=== PATIENT | female | born 1935 | race Caucasian/White ===

== ENCOUNTER 2018-02-08 09:35 | Emergency (ER) | payer MEDICARE, OTHER ==
[~2018-02-08] VITALS: Ht 152.4 cm; Wt 72.6 kg
[~2018-02-08 09:35] MED LIST: ALBU90OI INH; AMLO10 PO; ASCO500 PO; ASPI81CH PO; ASPI81EC PO; ATEN25; ATOR10 PO; BCOIRO PO; BENADRYL25 MG PO; CARB200; CARB200 PO; CHOL10002 PO; CIPR500 PO; CLON.1 PO; CLON.2; CLON.2 PO; CLOP75 PO; CYAN1000I IM; Calcium Citrat250 MG PO; Cyclobenzaprine5 MG PO; DIAZ10 PO; DIAZ2 PO; DIAZ5; DIAZ5 PO; DIPH25 PO; DIPH50; DOCU100 PO; Diazepam5 MG PO; ENAL10; GABA300 PO; HYDACE5; HYDACE7.5 PO; HYDR1TAB94 PO; HYDSUL200 PO; Hydrocodone-Ap1 EA26 PO; IBUHYD PO; LEVFLO500 PO; LEVSOD50 PO; LOSA50 PO; MICONAZOLE 3200 MG; MIRT15 PO; MULVITB&C PO; MULVITMIND PO; Macrobid 100 M100 MG PO; Miconazole 31 EACH; NYST100TO; OMEP20ER PO; ONDA4 PO; PANT40 PO; POTCHL20ER PO; Prilosec Otc20 MG PO; RANI150; ROPI2 PO; ROPINIROLE HCL4 MG PO; SERT100 PO; SERT50 PO; SULTRIDS PO; Senokotxtra17.2 MG PO; Tylenol325 MG PO; VALS80 PO; Zofran Odt4 MG SL; Zofran4 MG PO; [UNRECOGNIZED DRUG - CODE] PO; [UNRECOGNIZED DRUG - CODE] PO; [UNRECOGNIZED DRUG - CODE] PO; [UNRECOGNIZED DRUG - CODE] PO; [UNRECOGNIZED DRUG - OTHER] PO
== END 2018-02-08 10:20 | disposition home or self-care (01) ==
LOC: ECHO 09:35 → ER 09:35 → ECHO 02-09 10:00
DX: I10 Essential (primary) hypertension (principal); F32.9 Major depressive disorder, single episode, unspecified; J45.909 Unspecified asthma, uncomplicated; Z86.73 Personal history of transient ischemic attack (TIA), and cerebral infarction without residual deficits; G20 Parkinson's disease; Z88.0 Allergy status to penicillin; Z88.8 Allergy status to other drugs, medicaments and biological substances; Z91.040 Latex allergy status; Z79.899 Other long term (current) drug therapy; Z79.891 Long term (current) use of opiate analgesic
CPT/HCPCS: 93005; 93010; 93306; 99283

== ENCOUNTER → 2018-03-20 | Outpatient (CLI) | payer MEDICARE, OTHER | LOC: LAB SHORT 16:47 → LAB 16:47 | DX: Z48.817 Encounter for surgical aftercare following surgery on the skin and subcutaneous tissue (principal) | CPT/HCPCS: 87070; 87077; 87147; 87186; 87205 ==

== ENCOUNTER 2019-02-25 22:38 | Emergency (ER) | payer MEDICARE, OTHER ==
[~2019-02-25] VITALS: Ht 152.4 cm; Wt 68.0 kg
== END 2019-02-26 01:14 | disposition home or self-care (01) ==
LOC: ER 22:38
DX: M25.571 Pain in right ankle and joints of right foot (principal); Z88.0 Allergy status to penicillin; Z88.8 Allergy status to other drugs, medicaments and biological substances; Z91.040 Latex allergy status; Z79.899 Other long term (current) drug therapy; Z79.891 Long term (current) use of opiate analgesic; I10 Essential (primary) hypertension; F32.9 Major depressive disorder, single episode, unspecified
CPT/HCPCS: 73590; 73600; 73620; 99283-25; A9270-GY

== ENCOUNTER 2019-06-06 22:49 | Emergency (ER) | payer MEDICARE, OTHER ==
[~2019-06-06] VITALS: Ht 152.4 cm; Wt 68.0 kg
[~2019-06-06 22:49] MED LIST changes: -HYDSUL200 PO
[2019-06-07 01:03] LABS: Source, Urine Clean Catch
[2019-06-07 01:09] LABS: Bilirubin, Urine Neg (Neg); Blood, Urine Neg (Neg); Glucose Qualitative, Urine Neg (Neg); Ketones, Urine Neg (Neg); Leukocyte Esterase, Urine 1+ (Neg); Nitrite, Urine Neg (Neg); Protein, Urine Neg (Neg); Urobilinogen, Urine NORM (Normal)
[2019-06-07 01:18] LABS: Appearance, Urine Clear (Clear); Bacteria Rare /hpf; Color, Urine Yellow (P-Yellow); Red Blood Cells, Urine Not Seen /hpf (0-2); Squamous Epithelial Cells Not Seen /hpf (Few); White Blood Cells, Urine 0-2 /hpf (0-5)
[2019-06-07] MEDS ORDERED: Cyclobenzaprine5 MG PO (02:21)
== END 2019-06-07 04:13 | disposition home or self-care (01) ==
LOC: ER 22:49
PROVIDERS: Emergency Medicine
DX: M62.830 Muscle spasm of back (principal); G89.29 Other chronic pain; I10 Essential (primary) hypertension; F32.9 Major depressive disorder, single episode, unspecified; J45.909 Unspecified asthma, uncomplicated; Z88.8 Allergy status to other drugs, medicaments and biological substances; Z88.0 Allergy status to penicillin; Z91.040 Latex allergy status; Z79.899 Other long term (current) drug therapy; Z79.02 Long term (current) use of antithrombotics/antiplatelets
CPT/HCPCS: 81001; 87077; 87086; 87186; 99283; A9270-GY; G0480

== ENCOUNTER 2019-08-23 16:32 | Inpatient (IN) | payer MEDICARE ==
[~2019-08-23] VITALS: Ht 152.4 cm; Wt 71.6 kg
[~2019-08-23 16:32] MED LIST changes: -ALBU90OI INH; -CHOL10002 PO; -LEVSOD50 PO; -MIRT15 PO; -Prilosec Otc20 MG PO; -ROPINIROLE HCL4 MG PO; -Tylenol325 MG PO
[2019-08-23 17:24] LABS: BASOPHILS ABSOLUTE AUTO 0.03 K/mm3 (0.00-0.23); BASOPHILS PERCENT AUTO 0 % (0-2); EOSINOPHILS ABSOLUTE AUTO 0.05 K/mm3 (0.00-0.68); EOSINOPHILS PERCENT AUTO 1 % (0-6); Hematocrit 36.8 % (33.0-51.0); Hemoglobin 12.1 g/dL (11.5-16.0); IMMATURE GRAN ABSOLUTE AUTO 0.03 K/mm3 (0.00-0.10); IMMATURE GRAN PERCENT AUTO 0 % (0-1); LYMPHOCYTES ABSOLUTE AUTO 1.56 K/mm3 (0.84-5.20); LYMPHOCYTES PERCENT AUTO 17 % (21-46); MONOCYTES ABSOLUTE AUTO 0.52 K/mm3 (0.16-1.47); MONOCYTES PERCENT AUTO 6 % (4-13); Mean Corpuscular HGB 30.7 pg (26.0-34.0); Mean Corpuscular HGB Conc 32.9 g/dL (31.5-36.5); Mean Corpuscular Volume 93 fL (80-100); Mean Platelet Volume 10.3 fL (9.1-12.4); NEUTROPHILS ABSOLUTE AUTO 7.29 K/mm3 (1.96-9.15); NEUTROPHILS PERCENT AUTO 77 % (41-73); Platelet Count 261 K/mm3 (150-400); RDW Coefficient Variation 12.7 % (11.7-14.2); RDW Standard Deviation 43.8 fL (35.1-46.3); Red Blood Cell Count 3.94 M/mm3 (3.80-5.20); White Blood Cell Count 9.48 K/mm3 (4.00-11.30)
[2019-08-23 17:42] LABS: Alanine Aminotransfer (ALT/SGP 23 U/L (12-78); Albumin, Blood 3.4 g/dL (3.4-5.0); Albumin/Globulin Ratio 1.1 (0.8-1.8); Alk Phos 74 U/L (50-136); Anion Gap 3 mmol/L (6-16); Aspartate Aminotrans (AST/SGOT 23 U/L (12-37); Bilirubin, Total 0.3 mg/dL (0.1-1.0); Blood Urea Nitrogen 24 mg/dL (8-24); Bun/Creatinine Ratio 27.3 (12.0-20.0); CO2, Blood 29 mmol/L (21-32); Calcium, Blood 8.8 mg/dL (8.5-10.1); Chloride, Blood 108 mmol/L (98-108); Creatinine, Blood 0.88 mg/dL (0.40-1.00); Globulin, Blood 3.1 g/dL (2.2-4.0); Glomerular Filtration Rate >60 (60-); Glucose, Blood 158 mg/dL (70-99); Potassium, Blood 4.5 mmol/L (3.5-5.5); Sodium, Blood 140 mmol/L (136-145); Total Protein, Blood 6.5 g/dL (6.4-8.2)
[2019-08-23 18:02] LABS: Source, Urine Catheter
[2019-08-23 18:05] LABS: Bilirubin, Urine Neg (Neg); Blood, Urine Neg (Neg); Glucose Qualitative, Urine Neg (Neg); Ketones, Urine Neg (Neg); Leukocyte Esterase, Urine 1+ (Neg); Nitrite, Urine Pos (Neg); Protein, Urine 1+ (Neg); Urobilinogen, Urine NORM (Normal)
[2019-08-23 18:11] LABS: Appearance, Urine Clear (Clear); Color, Urine Yellow (P-Yellow)
[2019-08-23 18:12] LABS: Bacteria Many /hpf; Red Blood Cells, Urine 0-2 /hpf (0-2); Squamous Epithelial Cells Few /hpf (Few)
[2019-08-23] MEDS ORDERED: HYDSUL200 PO (19:46)
[2019-08-23] MEDS ORDERED: CLON.2 PO (19:47)
[2019-08-23] MEDS ORDERED: LOSARTAN-HCTZ1 EAC2 PO (19:48)
[2019-08-23] MEDS ORDERED: GABA300 PO (19:49)
[2019-08-23 20:01] LABS: Carbamazepine 10.5 ug/mL (4.0-12.0)
[2019-08-23 20:31] LABS: U Amphetamine Screen Not Detected; U Barbituate Screen Not Detected; U Benzodiazapine Screen Not Detected; U Buprenorphine Screen Not Detected; U Cannabinoids Screen Not Detected; U Cocaine Screen Not Detected; U Methadone Screen Not Detected; U Methamphetamine Screen Not Detected; U Opiates Screen Not Detected; U Oxycodone Screen Not Detected; U Phencyclidine Screen Not Detected; U Propoxyphene Screen Not Detected
[2019-08-23] MEDS ORDERED: CARB200 PO (22:19)
[2019-08-23] MEDS ORDERED: ATOR10 PO (22:19)
[2019-08-23] MEDS ORDERED: AMLO10 PO (22:20)
[2019-08-23] MEDS ORDERED: CLOP75 PO (22:21)
[2019-08-23] MEDS ORDERED: LEVSOD50 PO (22:21)
[2019-08-23] MEDS ORDERED: VITAMIN D31000 UNI2 PO (22:22)
[2019-08-23] MEDS ORDERED: Ropinirole HCl2 MG PO (22:24)
[2019-08-23] MEDS ORDERED: ALBU90OI INH (22:25)
[2019-08-23] MEDS ORDERED: MIRT30 PO (22:25)
[2019-08-23] MEDS ORDERED: OMEPRAZOLE20 MG PO (22:26)
[2019-08-23] MEDS ORDERED: ASCO500 PO (22:28)
[2019-08-23] MEDS ORDERED: Tylenol325 MG PO (22:28)
[2019-08-23] MEDS ORDERED: Calcium 600 MG1 EACH PO (22:31)
--- NOTE | 2019-08-24 05:43 | NUR ---
SHIFT SUMMARY PATIENT ADMITTED FROM ER. AAOX4. FORGETFUL. 1 PERSON ASSIST TO BSC. BED ALARM. RIGHT AC IV LEAKING , REPLACED IV IN L AC. PATIENT SLEPT THROUGHOUT SHIFT. USING CALL LIGHT APPROPRIATELY. WILL CONTINUE TO MONITOR.
--- NOTE | 2019-08-24 10:27 | NUR ---
ECHOCARDIOGRAM COMPLETED
--- NOTE | 2019-08-24 17:56 | NUR ---
PT ALERT AND ORIENTED THROUGHOUT THIS SHIFT. PT UP TO BATHROOM WITH FWW MULTIPLE TIMES THIS SHIFT WITH MINIMAL STANDBY ASSIST. PT COOPERATIVE WITH CARE. PT VERY [place] AND WITHOUT HER HEARING AIDS. PT HAS HAD MULTIPLE VISITORS THROUGHOUT THIS SHIFT. PT HAS BEEN IN BED FOR MOST OF THIS SHIFT, UP IN CHAIR FOR BREAKFAST. PT CURRENTLY IN ROOM EATING DINNER WITH VISITORS IN ROOM, CALL LIGHT WITHIN REACH. WILL CONTINUE TO MONITOR.
[2019-08-25 05:08] LABS: Anion Gap 6 mmol/L (6-16); Blood Urea Nitrogen 12 mg/dL (8-24); Bun/Creatinine Ratio 19.2 (12.0-20.0); CO2, Blood 26 mmol/L (21-32); Calcium, Blood 8.1 mg/dL (8.5-10.1); Chloride, Blood 105 mmol/L (98-108); Creatinine, Blood 0.62 mg/dL (0.40-1.00); Glomerular Filtration Rate >60 (60-); Glucose, Blood 112 mg/dL (70-99); Potassium, Blood 3.8 mmol/L (3.5-5.5); Sodium, Blood 137 mmol/L (136-145)
--- NOTE | 2019-08-25 05:25 | NUR ---
SHIFT SUMMARY NO ACUTE CHANGES TO REPORT THIS SHIFT. PT HAS RESTED MOST OF THE NIGHT. PT A/OX4, BUT IS VERY FORGETFUL AND SETS OFF BED ALARM A FEW TIMES THIS SHIFT. SHE IS A MINIMAL ASSIST TO THE BSC. PT DENIES PAIN. NEW IV STARTED IN RADHA BY SOUND TESTER. NS INFUSING ORDERED. ASSESSMENT UNCHANGED. VITALS STABLE. WILL CONTINUE TO MONITOR AND REPORT TO ONCOMING RN.
--- NOTE | 2019-08-25 17:50 | NUR ---
PT ALERT AND ORIENTED DURING THIS SHIFT. PT MILDLY FORGETFUL OF PREVIOUS CONVERSATIONS. PT USES CALL LIGHT FOR MANY NEEDS, BUT FORGETS WHEN SHE NEEDS TO USE THE BATHROOM. PT STEADY ON HER FEET WITH FWW, BUT FORGETS THAT SHE HAS AN IV RUNNING. PT AMBULATED IN THE HALLWAY THIS SHIFT WITH FWW AND STANDBY ASSIST. PT TOLERATED WELL. PT'S SISTER WAS IN TO VISIT THIS AFTERNOON. UP IN BED EATING DINNER, CALL LIGHT IN REACH. WILL CONTINUE TO MONITOR.
--- NOTE | 2019-08-26 05:11 | NUR ---
SHIFT SUMMARY NO ACUTE CHANGES TO REPORT THIS SHIFT. PT HAS RESTED MOST THE NIGHT. PT PLESANT AND COOPERATIVE, A/OX4. SHE IS FORGETFUL AND DOES NOT USE CALL LIGHT FOR HELP. BED ALARM IN PLACE FOR SAFETY. FLUIDS INFUSING ORDERED. PLAN IS FOR DC TODAY. VITALS STABLE AND ASSESSMENT UNCHANGED. WILL CONTINUE TO MONITOR AND REPORT TO ONCOMING RN.
[2019-08-26] MEDS ORDERED: LEVFLO500 PO (10:58)
[2019-08-26] MEDS ORDERED: Refresh Celluv1 EACH BOTHEYES (10:58)
[2019-08-26] MEDS ORDERED: Culturelle1 CAP PO (10:59)
--- NOTE | 2019-08-26 13:48 | NUR ---
ATTEMPTED TO CALL PT'S SON WHO LIVES WITH PT, NO ANSWER. PT REPORTS THAT PT'S SON IS EXTREMELY HARD OF HEARING AND DOES NOT DRIVE. PT REPORTED THAT POC WOULD BE PT'S SISTER SHE STILL DRIVES, PT'S SISTER LUCY WAS CALLED AND A MESSAGE WAS LEFT.
--- NOTE | 2019-08-26 15:41 | NUR ---
Patient AO to person, place, time, and situation, but forgetful. One person SBA W/transfers. Cont. of bladder. Denies SOB, lungs clear to all lobes. Bowel tones normoactive to all quadrants. IV fluids running @ prescribed rate to RFA site. IV site without obseravble IV related complications. Reporting 8/10 pain to back as well as chronic BLE/finger neuropathy. Positioning and APAP effective, patient reporting 3/10 pain post interventions. Bandaid to LUE saturated W/serosang drainage. Site cleaned, new bandaid applied. Wound without observable complications @ this time. IV DCd by this SN @ approximately 1430, no observable IV related complications. Discharge paperwork reviewed with patient and sister. Patient rscorted to [facility] where she was transported by family. Pt discharged @ 1436.
== END 2019-08-26 14:36 | disposition home or self-care (01) | DRG 871 ==
LOC: ER 16:32 → MEDS 19:37 → ER 20:36 → MEDS 20:43
PROVIDERS: Internal Medicine; Physician Assistant; ADMIT Internal Medicine
DX: A41.9 Sepsis, unspecified organism (principal); G92 Toxic encephalopathy; N39.0 Urinary tract infection, site not specified; E87.2 Acidosis; I10 Essential (primary) hypertension; E03.9 Hypothyroidism, unspecified; I35.0 Nonrheumatic aortic (valve) stenosis; I95.9 Hypotension, unspecified; Z66 Do not resuscitate; K21.9 Gastro-esophageal reflux disease without esophagitis; E78.5 Hyperlipidemia, unspecified; Z88.0 Allergy status to penicillin; Z88.8 Allergy status to other drugs, medicaments and biological substances; Z91.040 Latex allergy status; Z79.899 Other long term (current) drug therapy; Z87.891 Personal history of nicotine dependence
CPT/HCPCS: 36415; 71045; 80048; 80053; 80156; 81001; 83605; 84443; 85025; 87086; 90686; 93005; 93010; 93306; 96361; 96374; 99285-25; A9270; J0696; J1650; J7030; J7120

== ENCOUNTER → 2020-01-24 | Outpatient (CLI) | payer MEDICARE, OTHER ==
[~2020-01-24] MED LIST changes: +ALBU90OI INH; +Calcium 600 MG1 EACH PO; +Culturelle1 CAP PO; +HYDSUL200 PO; +LEVSOD50 PO; +LOSARTAN-HCTZ1 EAC2 PO; +MIRT30 PO; +OMEPRAZOLE20 MG PO; +Refresh Celluv1 EACH BOTHEYES; +Ropinirole HCl2 MG PO; +Tylenol325 MG PO; +VITAMIN D31000 UNI2 PO
[2020-01-24 15:03] LABS: Source, Urine Clean Catch
[2020-01-24 16:02] LABS: Appearance, Urine Hazy (Clear); Bilirubin, Urine Neg (Neg); Blood, Urine Neg (Neg); Color, Urine Yellow (P-Yellow); Glucose Qualitative, Urine Neg (Normal); Ketones, Urine Neg (Neg); Leukocyte Esterase, Urine Neg (Neg); Nitrite, Urine Neg (Neg); Protein, Urine Neg (Neg); Red Blood Cells, Urine Not Seen /hpf (0-2); Specific Gravity, Urine 1.025 (1.003-1.022); Urobilinogen, Urine NORM (Normal); White Blood Cells, Urine 0-2 /hpf (0-5)
[2020-01-24 16:03] LABS: Amorphous Mod (0-Heavy); Bacteria Not Seen /hpf; Squamous Epithelial Cells Many /hpf (Few)
== END | disposition home or self-care (01) ==
LOC: LAB EV 14:35
PROVIDERS: Physician Assistant
DX: N39.0 Urinary tract infection, site not specified (principal)
CPT/HCPCS: 81001

== ENCOUNTER 2020-02-11 12:08 | Inpatient (IN) | payer MEDICARE ==
[~2020-02-11] VITALS: Ht 152.4 cm; Wt 68.0 kg
[~2020-02-11 12:08] MED LIST changes: +EUTHYROX50 MCG PO; -LEVSOD50 PO; +VITAMIN D31000 UNI1 PO; -VITAMIN D31000 UNI2 PO
[2020-02-11 12:40] LABS: Source, Urine Catheter
[2020-02-11 12:47] LABS: Bilirubin, Urine Neg (Neg); Blood, Urine Neg (Neg); Glucose Qualitative, Urine Neg (Neg); Ketones, Urine Neg (Neg); Leukocyte Esterase, Urine Neg (Neg); Nitrite, Urine Pos (Neg); Protein, Urine Neg (Neg); Specific Gravity, Urine 1.015 (1.003-1.022); Urobilinogen, Urine NORM (Normal)
[2020-02-11 12:57] LABS: Appearance, Urine Clear (Clear); Color, Urine Yellow (P-Yellow)
[2020-02-11 12:58] LABS: Bacteria Many /hpf; Red Blood Cells, Urine 0-2 /hpf (0-2); Squamous Epithelial Cells Rare /hpf (Few)
[2020-02-11 13:26] LABS: BASOPHILS ABSOLUTE AUTO 0.03 K/mm3 (0.00-0.23); BASOPHILS PERCENT AUTO 1 % (0-2); EOSINOPHILS ABSOLUTE AUTO 0.15 K/mm3 (0.00-0.68); EOSINOPHILS PERCENT AUTO 2 % (0-6); Hematocrit 37.8 % (33.0-51.0); Hemoglobin 12.6 g/dL (11.5-16.0); IMMATURE GRAN ABSOLUTE AUTO 0.02 K/mm3 (0.00-0.10); IMMATURE GRAN PERCENT AUTO 0 % (0-1); LYMPHOCYTES ABSOLUTE AUTO 1.91 K/mm3 (0.84-5.20); LYMPHOCYTES PERCENT AUTO 29 % (21-46); MONOCYTES ABSOLUTE AUTO 0.56 K/mm3 (0.16-1.47); MONOCYTES PERCENT AUTO 9 % (4-13); Mean Corpuscular HGB 29.6 pg (26.0-34.0); Mean Corpuscular HGB Conc 33.3 g/dL (31.5-36.5); Mean Corpuscular Volume 89 fL (80-100); NEUTROPHILS ABSOLUTE AUTO 3.91 K/mm3 (1.96-9.15); NEUTROPHILS PERCENT AUTO 59 % (41-73); Platelet Count 297 K/mm3 (150-400); RDW Coefficient Variation 13.1 % (11.7-14.2); RDW Standard Deviation 42.4 fL (35.1-46.3); Red Blood Cell Count 4.25 M/mm3 (3.80-5.20); White Blood Cell Count 6.58 K/mm3 (4.00-11.30)
[2020-02-11 14:56] LABS: Anion Gap 4 mmol/L (6-16); Blood Urea Nitrogen 13 mg/dL (8-24); Bun/Creatinine Ratio 22.6 (12.0-20.0); CO2, Blood 27 mmol/L (21-32); Calcium, Blood 8.7 mg/dL (8.5-10.1); Chloride, Blood 107 mmol/L (98-108); Creatinine, Blood 0.57 mg/dL (0.40-1.00); Glomerular Filtration Rate >60 (60-); Glucose, Blood 104 mg/dL (70-99); Potassium, Blood 4.4 mmol/L (3.5-5.5); Sodium, Blood 138 mmol/L (136-145)
[2020-02-11] MEDS ORDERED: REMERON30 MG PO (15:20)
[2020-02-11] MEDS ORDERED: GABA300 PO (16:55)
[2020-02-11] MEDS ORDERED: CALCIUM CIT 311 EACH PO (18:25)
[2020-02-11] MEDS ORDERED: CARB200 PO (18:31)
[2020-02-11] MEDS ORDERED: LOSA50 PO (18:32)
[2020-02-11] MEDS ORDERED: SERT100 PO (18:32)
[2020-02-11] MEDS ORDERED: HYDR1TAB94 PO (18:33)
[2020-02-11] MEDS ORDERED: DIAZ5 PO (18:33)
[2020-02-11] MEDS ORDERED: B Complex-Foli1 EACH PO (18:34)
[2020-02-11] MEDS ORDERED: VITAMIN D3100 MCG PO (18:34)
[2020-02-11] MEDS ORDERED: BISA10S PR (18:35)
[2020-02-11] MEDS ORDERED: BENADRYL25 M1 PO (18:35)
[2020-02-11] MEDS ORDERED: ONDA4 PO (18:36)
[2020-02-12 04:45] LABS: Hematocrit 36.7 % (33.0-51.0); Mean Corpuscular HGB 29.6 pg (26.0-34.0); Mean Corpuscular HGB Conc 32.7 g/dL (31.5-36.5); Mean Corpuscular Volume 91 fL (80-100); Mean Platelet Volume 9.2 fL (9.1-12.4); Platelet Count 324 K/mm3 (150-400); RDW Coefficient Variation 13.2 % (11.7-14.2); RDW Standard Deviation 43.8 fL (35.1-46.3); Red Blood Cell Count 4.05 M/mm3 (3.80-5.20); White Blood Cell Count 5.61 K/mm3 (4.00-11.30)
[2020-02-12 05:05] LABS: Anion Gap 5 mmol/L (6-16); Blood Urea Nitrogen 18 mg/dL (8-24); Bun/Creatinine Ratio 19.7 (12.0-20.0); CHOL/HDL RATIO 4.7; CO2, Blood 26 mmol/L (21-32); Calcium, Blood 8.2 mg/dL (8.5-10.1); Chloride, Blood 108 mmol/L (98-108); Cholesterol 188 mg/dL (50-200); Creatinine, Blood 0.91 mg/dL (0.40-1.00); Glomerular Filtration Rate >60 (60-); Glucose, Blood 90 mg/dL (70-99); HDL Cholesterol 40 mg/dL (>39); LDL/HDL RATIO 2.8; Low Density Lipoprotein Chol 110 mg/dL (0-110); Potassium, Blood 3.9 mmol/L (3.5-5.5); Sodium, Blood 139 mmol/L (136-145); Triglycerides 189 mg/dL (30-160); Very Low Density Lipoprot Chol 37 mg/dL (6-32)
[2020-02-13] MEDS ORDERED: ASPI325 PO (15:19)
== END 2020-02-13 16:05 | disposition home health service (06) | DRG 65 ==
LOC: ER 12:08 → MEDS 12:09 → ER 16:10 → MEDS 16:15
PROVIDERS: Emergency Medicine; Physician Assistant; ADMIT Internal Medicine
DX: I63.9 Cerebral infarction, unspecified (principal); N39.0 Urinary tract infection, site not specified; R47.1 Dysarthria and anarthria; R13.10 Dysphagia, unspecified; I10 Essential (primary) hypertension; F41.8 Other specified anxiety disorders; F03.90 Unspecified dementia, unspecified severity, without behavioral disturbance, psychotic disturbance, mood disturbance, and anxiety; K21.9 Gastro-esophageal reflux disease without esophagitis; E03.9 Hypothyroidism, unspecified; B96.20 Unspecified Escherichia coli [E. coli] as the cause of diseases classified elsewhere; G25.81 Restless legs syndrome; G62.9 Polyneuropathy, unspecified; I35.0 Nonrheumatic aortic (valve) stenosis; I27.20 Pulmonary hypertension, unspecified; E78.5 Hyperlipidemia, unspecified; Z66 Do not resuscitate; Z79.02 Long term (current) use of antithrombotics/antiplatelets
CPT/HCPCS: 36415; 51701; 70450; 70551; 80048; 80061; 81001; 83036; 85025; 85027; 87077; 87086; 87186; 92610; 93306; 93880; 96372; 96374; 97162; 97165; 97530; 97535; 99285-25; A9270-GY; G0378; J0696; J1650; J7050

== ENCOUNTER 2020-05-01 14:56 | Inpatient (IN) | payer MEDICARE, OTHER ==
[~2020-05-01] VITALS: Ht 165.1 cm; Wt 79.4 kg
[~2020-05-01 14:56] MED LIST changes: +ASPI325EC PO; +ATOR40TA PO; +BENADRYL25 M1 PO; +BISA10S PR; +CALCIUM CIT 311 EACH PO; +REMERON30 MG PO; +VITAMIN D3100 MCG PO; +Vitamin B Comple1 EA PO
[2020-05-01 15:20] LABS: BASOPHILS ABSOLUTE AUTO 0.05 K/mm3 (0.00-0.23); BASOPHILS PERCENT AUTO 1 % (0-2); EOSINOPHILS ABSOLUTE AUTO 0.12 K/mm3 (0.00-0.68); EOSINOPHILS PERCENT AUTO 2 % (0-6); Hematocrit 39.7 % (33.0-51.0); Hemoglobin 12.8 g/dL (11.5-16.0); IMMATURE GRAN ABSOLUTE AUTO 0.01 K/mm3 (0.00-0.10); IMMATURE GRAN PERCENT AUTO 0 % (0-1); LYMPHOCYTES ABSOLUTE AUTO 2.49 K/mm3 (0.84-5.20); LYMPHOCYTES PERCENT AUTO 46 % (21-46); MONOCYTES ABSOLUTE AUTO 0.43 K/mm3 (0.16-1.47); MONOCYTES PERCENT AUTO 8 % (4-13); Mean Corpuscular HGB 29.4 pg (26.0-34.0); Mean Corpuscular HGB Conc 32.2 g/dL (31.5-36.5); Mean Corpuscular Volume 91 fL (80-100); Mean Platelet Volume 9.9 fL (9.1-12.4); NEUTROPHILS ABSOLUTE AUTO 2.27 K/mm3 (1.96-9.15); NEUTROPHILS PERCENT AUTO 42 % (41-73); Platelet Count 271 K/mm3 (150-400); RDW Coefficient Variation 12.8 % (11.7-14.2); RDW Standard Deviation 43.3 fL (35.1-46.3); Red Blood Cell Count 4.35 M/mm3 (3.80-5.20); White Blood Cell Count 5.37 K/mm3 (4.00-11.30)
[2020-05-01 15:42] LABS: Alanine Aminotransfer (ALT/SGP 15 U/L (12-78); Albumin, Blood 3.3 g/dL (3.4-5.0); Alk Phos 77 U/L (50-136); Anion Gap 6 mmol/L (6-16); Aspartate Aminotrans (AST/SGOT 13 U/L (12-37); Bilirubin, Total 0.3 mg/dL (0.1-1.0); Blood Urea Nitrogen 26 mg/dL (8-24); Bun/Creatinine Ratio 29.5 (12.0-20.0); CO2, Blood 26 mmol/L (21-32); Calcium, Blood 8.6 mg/dL (8.5-10.1); Chloride, Blood 109 mmol/L (98-108); Creatinine, Blood 0.88 mg/dL (0.40-1.00); Globulin, Blood 3.3 g/dL (2.2-4.0); Glomerular Filtration Rate >60 (60-); Glucose, Blood 120 mg/dL (70-99); Potassium, Blood 4.1 mmol/L (3.5-5.5); Sodium, Blood 141 mmol/L (136-145); Total Protein, Blood 6.6 g/dL (6.4-8.2)
[2020-05-01 15:50] LABS: Source, Urine Catheter
[2020-05-01 15:59] LABS: Bilirubin, Urine Neg (Neg); Blood, Urine Neg (Neg); Glucose Qualitative, Urine Neg (Neg); Ketones, Urine Neg (Neg); Leukocyte Esterase, Urine 2+ (Neg); Nitrite, Urine Pos (Neg); Protein, Urine Neg (Neg); Urobilinogen, Urine NORM (Normal)
[2020-05-01 16:03] LABS: International Normalized Ratio 0.95; Prothrombin Time Results 10.2 Sec (9.7-11.5)
[2020-05-01 16:10] LABS: Appearance, Urine Hazy (Clear); Color, Urine Yellow (P-Yellow)
[2020-05-01 16:11] LABS: Red Blood Cells, Urine 0-2 /hpf (0-2); White Blood Cells, Urine 25-50 /hpf (0-5)
[2020-05-01 16:12] LABS: Bacteria Many /hpf; Squamous Epithelial Cells Few /hpf (Few)
[2020-05-02] MEDS ORDERED: DULCOLAX STOOL100 MG PO (03:24)
[2020-05-02] MEDS ORDERED: BENADRYL25 MG PO (03:25)
[2020-05-02] MEDS ORDERED: ONDA4 PO (03:26)
[2020-05-02] MEDS ORDERED: SYSTANE 0.3-0.415 ML BOTHEYES (03:27)
[2020-05-02] MEDS ORDERED: DIAZ5 PO (03:35)
[2020-05-02] MEDS ORDERED: HYDR1TAB94 PO (03:36)
[2020-05-02 05:56] LABS: BASOPHILS ABSOLUTE AUTO 0.04 K/mm3 (0.00-0.23); BASOPHILS PERCENT AUTO 1 % (0-2); EOSINOPHILS ABSOLUTE AUTO 0.17 K/mm3 (0.00-0.68); EOSINOPHILS PERCENT AUTO 2 % (0-6); Hematocrit 40.4 % (33.0-51.0); Hemoglobin 12.7 g/dL (11.5-16.0); IMMATURE GRAN ABSOLUTE AUTO 0.02 K/mm3 (0.00-0.10); IMMATURE GRAN PERCENT AUTO 0 % (0-1); LYMPHOCYTES ABSOLUTE AUTO 2.49 K/mm3 (0.84-5.20); LYMPHOCYTES PERCENT AUTO 29 % (21-46); MONOCYTES ABSOLUTE AUTO 0.65 K/mm3 (0.16-1.47); MONOCYTES PERCENT AUTO 8 % (4-13); Mean Corpuscular HGB 29.3 pg (26.0-34.0); Mean Corpuscular HGB Conc 31.4 g/dL (31.5-36.5); Mean Corpuscular Volume 93 fL (80-100); Mean Platelet Volume 9.9 fL (9.1-12.4); NEUTROPHILS ABSOLUTE AUTO 5.16 K/mm3 (1.96-9.15); NEUTROPHILS PERCENT AUTO 61 % (41-73); Platelet Count 252 K/mm3 (150-400); RDW Coefficient Variation 12.6 % (11.7-14.2); RDW Standard Deviation 43.5 fL (35.1-46.3); Red Blood Cell Count 4.33 M/mm3 (3.80-5.20); White Blood Cell Count 8.53 K/mm3 (4.00-11.30)
[2020-05-02 06:53] LABS: Alanine Aminotransfer (ALT/SGP 10 U/L (12-78); Albumin, Blood 3.1 g/dL (3.4-5.0); Alk Phos 81 U/L (50-136); Anion Gap 6 mmol/L (6-16); Aspartate Aminotrans (AST/SGOT 13 U/L (12-37); Bilirubin, Total 0.4 mg/dL (0.1-1.0); Blood Urea Nitrogen 17 mg/dL (8-24); Bun/Creatinine Ratio 26.2 (12.0-20.0); CO2, Blood 22 mmol/L (21-32); Chloride, Blood 114 mmol/L (98-108); Creatinine, Blood 0.65 mg/dL (0.40-1.00); Globulin, Blood 3.2 g/dL (2.2-4.0); Glomerular Filtration Rate >60 (60-); Glucose, Blood 89 mg/dL (70-99); Sodium, Blood 142 mmol/L (136-145); Total Protein, Blood 6.3 g/dL (6.4-8.2)
--- NOTE | 2020-05-02 12:21 | NUR ---
SPEECH THERAPY IN TO COMPLETE A SWALLOW EVAL.
--- NOTE | 2020-05-02 12:58 | NUR ---
DR COOK IN TO SEE PT. DR COOK NOTIFIED OF HTN, OK TO START LOSARTAN 50MG PO DAILY, START NOW. DR COOK CALLED ADN UPDATED STEVE FAULKNER.
[2020-05-02] MEDS ORDERED: DOCU100 PO (13:07)
--- NOTE | 2020-05-02 16:45 | NUR ---
SHIFT SUMMARY- PT A/OX4, FORGETFUL AT TIMES. PT WITH SLURRED SPEECH BUT ABLE TO UNDERSTAND MOST OF WHAT SHE IS SAYING. SWALLOW EVAL COMPLETED, PUREE HONEY THICK DIET WITH SUPERVISION. PT DID WELL WITH LUNCH. SOFTWARE SALES EXECUTIVE EQUAL. LS CLEAR, ON RA. TELE NSR AT 64. PT DOES REPORT SOME MILD NUMBNESS TO RIGHT HAND. 1 ASSIST UP TO BSC/CHAIR, UNSTEADY AND IMPULSIVE AT TIMES. PT STARTED BACK ON COZARR. TYLENOL GIVEN X1 FOR HEADACHE. NO OTHER ACUTE CHANGES THIS SHIFT.
--- NOTE | 2020-05-03 03:32 | NUR ---
SMOKE AND FLAME SPECIALIST SUMMARY PT A/O X4. CALLS APPROPRIATELY. HOSPTALIST AWARE OF HTN. THIS IS PERMISSIVE HTN ALLOWABLE WITH [facility]. HOSPITALIST KAYDEN SAID TO CALL IF SYSTOLIC IS 200 OR GREATER. FREQUENT URINATION. UTI TREATING WITH IV ANTIBIOTICS. PT REPORTS LESS BURNING UPON URINATION. NO FACIAL DROOPING NOTICED. PUPILS EQUAL AND REACTIVE TO LIGHT. PT REPORTS LEFT SIDED WEAKNESS. LEFT SIDE PUBLIC HEALTH PHYSICIAN FEELS WEAKER COMPARED TO RIGHT SIDE. PT REPORTS HEADACHE AND BACKACHE. TYLENOL GIVEN WHICH DID NOT DECREASED PT'S PAIN. NORCO X1 WAS ORDERED BY HOSPITALIST KAYDEN. MEDS CRUSHED IN APPLE SAUCE PT HAS TROUBLE SWALLOWING.
[2020-05-03 05:48] LABS: BASOPHILS ABSOLUTE AUTO 0.04 K/mm3 (0.00-0.23); BASOPHILS PERCENT AUTO 1 % (0-2); EOSINOPHILS ABSOLUTE AUTO 0.19 K/mm3 (0.00-0.68); EOSINOPHILS PERCENT AUTO 3 % (0-6); Hematocrit 37.8 % (33.0-51.0); Hemoglobin 12.4 g/dL (11.5-16.0); IMMATURE GRAN ABSOLUTE AUTO 0.01 K/mm3 (0.00-0.10); IMMATURE GRAN PERCENT AUTO 0 % (0-1); LYMPHOCYTES ABSOLUTE AUTO 2.17 K/mm3 (0.84-5.20); LYMPHOCYTES PERCENT AUTO 36 % (21-46); MONOCYTES ABSOLUTE AUTO 0.51 K/mm3 (0.16-1.47); MONOCYTES PERCENT AUTO 9 % (4-13); Mean Corpuscular HGB 29.7 pg (26.0-34.0); Mean Corpuscular HGB Conc 32.8 g/dL (31.5-36.5); Mean Corpuscular Volume 90 fL (80-100); Mean Platelet Volume 9.8 fL (9.1-12.4); NEUTROPHILS PERCENT AUTO 51 % (41-73); Platelet Count 252 K/mm3 (150-400); RDW Coefficient Variation 12.4 % (11.7-14.2); RDW Standard Deviation 41.4 fL (35.1-46.3); Red Blood Cell Count 4.18 M/mm3 (3.80-5.20); White Blood Cell Count 6.02 K/mm3 (4.00-11.30)
[2020-05-03 06:36] LABS: Alanine Aminotransfer (ALT/SGP 14 U/L (12-78); Albumin, Blood 3.4 g/dL (3.4-5.0); Alk Phos 91 U/L (50-136); Anion Gap 6 mmol/L (6-16); Aspartate Aminotrans (AST/SGOT 18 U/L (12-37); Bilirubin, Total 0.3 mg/dL (0.1-1.0); Blood Urea Nitrogen 8 mg/dL (8-24); Bun/Creatinine Ratio 12.5 (12.0-20.0); CO2, Blood 24 mmol/L (21-32); Calcium, Blood 8.5 mg/dL (8.5-10.1); Chloride, Blood 112 mmol/L (98-108); Creatinine, Blood 0.64 mg/dL (0.40-1.00); Globulin, Blood 3.3 g/dL (2.2-4.0); Glomerular Filtration Rate >60 (60-); Glucose, Blood 112 mg/dL (70-99); Potassium, Blood 3.9 mmol/L (3.5-5.5); Sodium, Blood 142 mmol/L (136-145); Total Protein, Blood 6.7 g/dL (6.4-8.2)
--- NOTE | 2020-05-03 10:30 | NUR ---
DR COOK IN TO SEE PT, FRIEND AT BEDSIDE WELL. DR COOK NOTIFIED OF CONTINUED ELEVATED BP'S, ORDER RECEIVED TO INCREASE LOSARTAN TO 100MG DAILY, OK TO GIVE A ONE TIME DOSE OF 50MG TODAY. ANTIBIOTICS CHANGED TO ORAL LEVAQUIN. TELE AND IVF DC'D. PT CONT TO C/O HEADACHE, STATES TYLENOL DOES NOT WORK. PT TAKES NORCO AT HOME, OK FOR NORCO 5/325MG [address] COOK ALSO SPOKE WITH PT ABOUT REHAB, PT IS AGREEABLE TO GO TO [facility] FOR REHAB. PER DR COOK GO AHEAD AND SWAB PT FOR R/O FOR SNF PLACEMENT.
--- NOTE | 2020-05-03 14:20 | NUR ---
THIS RN AND ASSISTANT INVENTORY MANAGER LOOKED FOR A SITE FOR A NEW IV PER DR COOK REQUEST, UNABLE TO FIND PERIPHERAL SITE. SPOKE WITH DR COOK AND OK TO LEAVE IV OUT AT THIS TIME.
--- NOTE | 2020-05-03 17:39 | NUR ---
SHIFT SUMMARY- PT A/OX4, FORGETFUL AT TIMES. PT HAS DENIED ANY PAIN T/O THE DAY. DRY CLEANING MACHINE OPERATOR HELPER APPEAR EQUAL AT THIS TIME, THIS AM STILL SOME VERY MILD WEAKNESS NOTED TO LEFT SIDE. SPEECH REMAINS SLURRED AT TIMES BUT ABLE TO UNDERSTAND. PT HAS BEEN EATING A PUREE HONEY THICK LIQUID DIET, NO COUGHING NOTED DURING MEALS HOWEVER WHEN SPEECH SEEN PT SHE NOTED COUGHING AND RECOMMENDED NPO IN WHICH PT REFUSED. BARIUM SWALLOW SCHEDULED FOR TOMORROW. BP REMAINS ELEVATED, COZARR INCREASED TO 100MG DAILY. PT UP WITH 1 ASSIST TO [facility] [place], AMBULATED IN HALLS WITH THERAPY. PLAN FOR SNF VS HH, PT AND FAMILY WANT [facility] IF SNF. COVID SCREENING SENT TODAY FOR DISCHARGE. LS CLEAR, ON RA. TELE SR AT 61 BUT HAS BEEN DC'D. NO OTHER ACUTE CHANGES THIS SHIFT.
--- NOTE | 2020-05-03 18:02 | NUR ---
PTS SBP HAS REMAINED IN THE 170'S EVEN WITH THE INCREASE IN LOSARTAN. CALLED AND SPOKE WITH JUANITA MONIQUE REGARDING THIS AND NO NEW ORDERS RECEIVED AT THIS TIME. REPORTS TO CONT TO MONITOR.
--- NOTE | 2020-05-04 04:26 | NUR ---
SHIFT SUMMARY PT SLEPT VERY LITTLE THIS EVENING. CALLS FREQUENTLY TO VOID. PT WAS REPORTING ABD DISCOMFORT, DESCRIBED CRAMPING. SHORTLY AFTER PT HAD A LARGE BOWEL MOVEMENT AND HAS HAD SEVERAL BOWEL MOVEMENTS SINCE. AFTER FIRST LARGE BOWEL MOVEMENT PT REPORTED THAT ABD DISCOMFORT WAS RELIEVED. PT HAS BEEN A/O X 4, FORGETFUL AT TIMES. BOX BENDER FEEL EQUAL. PT CONTINUES TO HAVE A LEFT SIDED FACIAL DROOP AND SOME SLURRED SPEECH. PT AMBULATING WELL WITH MINIMAL ASSIST TO BSC. PT DOES COMPLAIN OF NUMBNESS IN R HAND FROM PREVIOUS STROKE. PT COMPLAINED OF HEADACHE AND BACK PAIN THIS EVENING, MEDICATED W/ 1 TAB NORCO WITH GOOD EFFECT. PT CONTINUES TO HAVE HTN WITH SOME IMPROVEMENT THIS AM WITH SYSTOLIC IN THE 150'S. OTHERWISE VSS. NO OTHER ACUTE EVENTS OVERNIGHT. WILL CONTINUE TO MONITOR.
[2020-05-04 04:55] LABS: BASOPHILS ABSOLUTE AUTO 0.03 K/mm3 (0.00-0.23); BASOPHILS PERCENT AUTO 0 % (0-2); EOSINOPHILS ABSOLUTE AUTO 0.17 K/mm3 (0.00-0.68); EOSINOPHILS PERCENT AUTO 2 % (0-6); Hematocrit 37.8 % (33.0-51.0); Hemoglobin 12.6 g/dL (11.5-16.0); IMMATURE GRAN ABSOLUTE AUTO 0.01 K/mm3 (0.00-0.10); IMMATURE GRAN PERCENT AUTO 0 % (0-1); LYMPHOCYTES ABSOLUTE AUTO 2.52 K/mm3 (0.84-5.20); LYMPHOCYTES PERCENT AUTO 36 % (21-46); MONOCYTES ABSOLUTE AUTO 0.57 K/mm3 (0.16-1.47); MONOCYTES PERCENT AUTO 8 % (4-13); Mean Corpuscular HGB 29.6 pg (26.0-34.0); Mean Corpuscular HGB Conc 33.3 g/dL (31.5-36.5); Mean Corpuscular Volume 89 fL (80-100); Mean Platelet Volume 9.6 fL (9.1-12.4); NEUTROPHILS ABSOLUTE AUTO 3.71 K/mm3 (1.96-9.15); NEUTROPHILS PERCENT AUTO 53 % (41-73); Platelet Count 275 K/mm3 (150-400); RDW Coefficient Variation 12.6 % (11.7-14.2); Red Blood Cell Count 4.26 M/mm3 (3.80-5.20); White Blood Cell Count 7.01 K/mm3 (4.00-11.30)
[2020-05-04 05:15] LABS: Alanine Aminotransfer (ALT/SGP 15 U/L (12-78); Albumin, Blood 3.3 g/dL (3.4-5.0); Alk Phos 90 U/L (50-136); Anion Gap 6 mmol/L (6-16); Aspartate Aminotrans (AST/SGOT 18 U/L (12-37); Bilirubin, Total 0.3 mg/dL (0.1-1.0); Blood Urea Nitrogen 7 mg/dL (8-24); Bun/Creatinine Ratio 9.7 (12.0-20.0); CO2, Blood 26 mmol/L (21-32); Calcium, Blood 8.8 mg/dL (8.5-10.1); Chloride, Blood 109 mmol/L (98-108); Creatinine, Blood 0.72 mg/dL (0.40-1.00); Globulin, Blood 3.3 g/dL (2.2-4.0); Glomerular Filtration Rate >60 (60-); Glucose, Blood 118 mg/dL (70-99); Potassium, Blood 3.9 mmol/L (3.5-5.5); Sodium, Blood 141 mmol/L (136-145); Total Protein, Blood 6.6 g/dL (6.4-8.2)
--- NOTE | 2020-05-04 15:43 | NUR ---
PATIENT IS PLEASANT AND COOPERATIVE WITH STAFF. BP SLIGHTLY ELEVATED BUT SEEMS SOME-WHAT CONTROLLED BY BP MEDS. PATIENT CONTINUES ON PO ABX WITHOUT S/SX OF ADVERSE REACTIONS NOTED OR REPORTED. PATIENT HAD A BARRIUM SWALLOW THIS AFTERNOON AND REMAINS ON A PUREE DIET, SHE DOES NOT LIKE THE FOOD AT ALL. CALLS APPROPRIATELY FOR STAFF ASSIST NEEDED. PATIENT RESTING IN BED AT THIS TIME. WILL CONTINUE TO MONITOR AND PROVIDE CARE NEEDED.
--- NOTE | 2020-05-04 16:53 | NUR ---
Initial spiritual care note: Apolonia was pleasant and welcoming of encouragement and prayer. she feels well loved and supported by her family. She has a strong jim that sustains her. She reports hope for recovery and tells me she is willing to do the work to get better. I will remain available.
--- NOTE | 2020-05-04 19:20 | NUR ---
HYPERTENSION NOTED NOTICED ELEVATED BP ASKED THAT ASSISTANT ADMINISTRATOR RE-TAKE BP IN AN HOUR IN A HALF TO SEE IF BP DECREASED.
--- NOTE | 2020-05-04 21:03 | NUR ---
HYPERTENSION HTN EVEN MORE ELEVATED THIS ATTEMPT. . CALLED ON-CALL PROVIDER. EXPLAINED SBAR. NEW ORDERS FOR HYDRALAZINE PO Q6 PRN. PROVIDER STATED TO ESTABLISH IV ACCES WELL. WCTM.
--- NOTE | 2020-05-04 23:15 | NUR ---
HYPERTENSION NOTED DECREASE IN BP 150/69. IV ACCESS ESTABLISHED PER TELEPHONE ORDER. [facility] FOR RESULTS.
--- NOTE | 2020-05-05 04:42 | NUR ---
SHIFT SUMMARY ALERT, ABLE TO MAKE NEEDS KNOWN. DOES HOWEVER HAVE SOME SLURRING OF WORDS WHICH CREATES A BARRIER AT TIMES. COOPERATIVE WITH CARE. MULTIPLE REQUESTS OF STAFF MEMBERS. NOTED HYPERTENSIVE. SPOKE WITH ON-CALL PHYSICIAN, STATED TO ESTABLISH IV ACCESS, BUT GAVE NEW ORDERS FOR HYDRALAZINE PO Q6 PRN. BP APPEARED TO RESPOND TO PO INTERVENTION. STRENGTH APPEARS TO BE IMPROVING. BEARS WEIGHT WELL WITH TRANSFERS. NO OTHER ACUTE CHANGES NOTED OVERNIGHT. APPEARED TO HAVE RESTED WELL FOR A FEW HOURS. CALL LIGHT AND BELONGINGS WITHIN REACH. BED IN LOWEST; ALARM ON. WCTM. REPORT TO ONCOMING RN.
[2020-05-05 05:54] LABS: BASOPHILS ABSOLUTE AUTO 0.05 K/mm3 (0.00-0.23); BASOPHILS PERCENT AUTO 1 % (0-2); EOSINOPHILS ABSOLUTE AUTO 0.16 K/mm3 (0.00-0.68); EOSINOPHILS PERCENT AUTO 3 % (0-6); Hematocrit 38.6 % (33.0-51.0); Hemoglobin 12.4 g/dL (11.5-16.0); IMMATURE GRAN ABSOLUTE AUTO 0.02 K/mm3 (0.00-0.10); IMMATURE GRAN PERCENT AUTO 0 % (0-1); LYMPHOCYTES ABSOLUTE AUTO 2.27 K/mm3 (0.84-5.20); LYMPHOCYTES PERCENT AUTO 35 % (21-46); MONOCYTES ABSOLUTE AUTO 0.58 K/mm3 (0.16-1.47); MONOCYTES PERCENT AUTO 9 % (4-13); Mean Corpuscular HGB 29.5 pg (26.0-34.0); Mean Corpuscular HGB Conc 32.1 g/dL (31.5-36.5); Mean Corpuscular Volume 92 fL (80-100); Mean Platelet Volume 9.7 fL (9.1-12.4); NEUTROPHILS ABSOLUTE AUTO 3.34 K/mm3 (1.96-9.15); NEUTROPHILS PERCENT AUTO 52 % (41-73); Platelet Count 282 K/mm3 (150-400); RDW Coefficient Variation 12.7 % (11.7-14.2); RDW Standard Deviation 42.7 fL (35.1-46.3); White Blood Cell Count 6.42 K/mm3 (4.00-11.30)
[2020-05-05 06:15] LABS: Alanine Aminotransfer (ALT/SGP 16 U/L (12-78); Albumin, Blood 3.1 g/dL (3.4-5.0); Alk Phos 76 U/L (50-136); Anion Gap 5 mmol/L (6-16); Aspartate Aminotrans (AST/SGOT 14 U/L (12-37); Bilirubin, Total 0.5 mg/dL (0.1-1.0); Blood Urea Nitrogen 12 mg/dL (8-24); Bun/Creatinine Ratio 15.1 (12.0-20.0); CO2, Blood 27 mmol/L (21-32); Calcium, Blood 8.7 mg/dL (8.5-10.1); Chloride, Blood 107 mmol/L (98-108); Globulin, Blood 3.2 g/dL (2.2-4.0); Glomerular Filtration Rate >60 (60-); Glucose, Blood 115 mg/dL (70-99); Sodium, Blood 139 mmol/L (136-145); Total Protein, Blood 6.3 g/dL (6.4-8.2)
[2020-05-05] MEDS ORDERED: LEVFLO500 PO (13:43)
--- NOTE | 2020-05-05 14:32 | NUR ---
Spiritual care visit conducted. Patient is lying in bed and alert. Patient tells me about the events that led to her hospitalization, how she is currently doing and the plan of care going forward. Patient talks about the medical issues but also talks about her emotional/spiritual status. Patient is upbeat and hopeful. Patient says that she is ready to do the hard work to recover as [facility]. Patient shows no signs of spiritual distress but is admittedly encouraged by conversation centered around jim and by prayer.
--- NOTE | 2020-05-05 15:28 | NUR ---
DISCHARGE PT DISCHARGED TO [facility]. THIS RN CALLED REPORT TO KRIS CANO. PT'S IV REMOVED WITHOUT DIFFICULTY. PT TRANSFERRED VIA WHEELCHAIR TO [facility] FOR TRANSFER. PT'S BELONGINGS WITH PT.
== END 2020-05-05 15:21 | DRG 65 ==
LOC: ER 14:56 → MEDS 17:22
PROVIDERS: Emergency Medicine; Physician Assistant; ADMIT Family Medicine
DX: I63.9 Cerebral infarction, unspecified (principal); G81.94 Hemiplegia, unspecified affecting left nondominant side; N39.0 Urinary tract infection, site not specified; R13.12 Dysphagia, oropharyngeal phase; R47.1 Dysarthria and anarthria; I10 Essential (primary) hypertension; B96.1 Klebsiella pneumoniae [K. pneumoniae] as the cause of diseases classified elsewhere; F03.90 Unspecified dementia, unspecified severity, without behavioral disturbance, psychotic disturbance, mood disturbance, and anxiety; G25.81 Restless legs syndrome; E03.9 Hypothyroidism, unspecified; K21.9 Gastro-esophageal reflux disease without esophagitis; F41.8 Other specified anxiety disorders; Z66 Do not resuscitate; Z87.891 Personal history of nicotine dependence; Z88.0 Allergy status to penicillin; Z88.8 Allergy status to other drugs, medicaments and biological substances; Z91.040 Latex allergy status; Z79.82 Long term (current) use of aspirin; Z79.02 Long term (current) use of antithrombotics/antiplatelets
CPT/HCPCS: 36415; 51701; 70450; 74230; 80053; 81001; 85025; 85610; 87077; 87086; 87186; 92526; 92610; 92611; 93005; 93010; 96361; 96365; 97110; 97116; 97162; 97165; 97530; 97535; 99285-25; A9270; A9270-GY; J0696; J1650; J7030; U0002; U0003

== ENCOUNTER 2022-01-10 01:37 | Emergency (ER) | payer MEDICARE, OTHER ==
[~2022-01-10] VITALS: Ht 152.4 cm; Wt 63.5 kg
[~2022-01-10 01:37] MED LIST changes: +ARTIFICIAL TEAR15 M2 BOTHEYES; +DULCOLAX STOOL100 MG PO; +Robaxin750 MG PO
[2022-01-10] MEDS ORDERED: GABA300T24 PO (03:00)
== END 2022-01-10 04:16 | disposition home or self-care (01) ==
LOC: ER 01:37
DX: G25.81 Restless legs syndrome (principal); Z76.0 Encounter for issue of repeat prescription; I10 Essential (primary) hypertension; G62.9 Polyneuropathy, unspecified; G40.909 Epilepsy, unspecified, not intractable, without status epilepticus; E03.9 Hypothyroidism, unspecified; K21.9 Gastro-esophageal reflux disease without esophagitis; Z86.73 Personal history of transient ischemic attack (TIA), and cerebral infarction without residual deficits; Z88.0 Allergy status to penicillin; Z91.040 Latex allergy status; Z88.8 Allergy status to other drugs, medicaments and biological substances; Z79.899 Other long term (current) drug therapy
CPT/HCPCS: 99284; A9270

== ENCOUNTER 2022-01-22 14:37 | Emergency (ER) | payer MEDICARE, OTHER ==
[~2022-01-22] VITALS: Ht 162.6 cm; Wt 68.0 kg
[~2022-01-22 14:37] MED LIST changes: +GABA300T24 PO
[2022-01-22] MEDS ORDERED: CYCL10 PO (15:39)
[2022-01-22] MEDS ORDERED: LIDO700A20 TOP (15:39)
== END 2022-01-22 15:51 | disposition home or self-care (01) ==
LOC: ER 14:37
DX: M62.830 Muscle spasm of back (principal); G89.29 Other chronic pain; Z88.8 Allergy status to other drugs, medicaments and biological substances; Z88.0 Allergy status to penicillin; Z91.040 Latex allergy status; Z79.899 Other long term (current) drug therapy; I10 Essential (primary) hypertension; G40.909 Epilepsy, unspecified, not intractable, without status epilepticus; E03.9 Hypothyroidism, unspecified; K21.9 Gastro-esophageal reflux disease without esophagitis; G20 Parkinson's disease
CPT/HCPCS: 99283; A9270